=== PATIENT | male | born 1980 | race Hispanic/Latino ===

== ENCOUNTER 2016-08-17 19:02 | Observation (INO) | payer BC ==
[2016-08-17] MEDS ORDERED: BABY ASPIRIN 81 MG CHEW PO ONE (19:19)
[2016-08-17] MEDS ORDERED: Nitrostat 0.4 MG (ED) SL ONE ×2 (19:21→19:26)
[2016-08-17] MEDS ORDERED: Ativan 2 MG/1 ML VIAL SL ONE (19:21)
[2016-08-17] MEDS ORDERED: Ativan 2 MG/1 ML VIAL ONE (19:26)
[2016-08-17] MEDS ORDERED: Sodium Chloride 0.9% 1000 ML 1,000 ML ONE (19:26)
[2016-08-17] MEDS ORDERED: BABY ASPIRIN 81 MG CHEW ONE (19:26)
[2016-08-17] MEDS ORDERED: Sodium Chloride 0.9% 1000 ML 1,000 ML IV SCH (19:30)
[2016-08-17 19:40] LABS: BASOPHIL % 0.2 % (0.0-0.4); Granulocytes % 69.9 % (36.0-66.0); Lymphocytes % 20.7 % (24.0-44.0); Mean Cell Volume 84.7 fl (78-100); Mean Corpuscular Hemoglobin 28.5 pg (26-32); Mean Platelet Volume 9.8 fl (6-9.5); Monocytes % 8.2 % (0.0-12.0); Platelet Count 402 K/mm3 (150-450); Red Blood Count 5.43 M/mm3 (4.1-5.6); Red Cell Distribution Width 13.6 % (11.5-14.0); White Blood Count 12.8 K/mm3 (4.0-10.5)
[2016-08-17 20:00] LABS: ALBUMIN 3.6 g/dL (3.4-5.0); ALKALINE PHOSPHATASE 131 U/L (46-116); ANION GAP 15.9 MEQ/L (5-15); BILIRUBIN,TOTAL 0.5 mg/dL (0.2-1.0); BLOOD UREA NITROGEN 13 mg/dL (9-20); CHLORIDE 103 mEq/L (98-107); Carbon Dioxide 21.6 mEq/L (21-32); Glucose 106 MG/DL (70-110); Potassium 3.3 mEq/L (3.5-5.1); SGOT/AST 16 U/L (15-37); SGPT/ALT 27 U/L (12-78); SODIUM 137 mEq/L (136-145); Total Protein 7.9 gm/dL (6.4-8.2)
--- NOTE | 2016-08-17 20:08 | ERPHSYRPT ---
- History of Present Illness Time Seen by Provider: 08/17/16 19:19 Historian: patient Patient Subjective Stated Complaint: pt states he began having chest pain after awaking from a nap. pt states he had a similar episode last week and was seen at a [facility] and dx'd with anxiety. Triage Nursing Assessment: pt pink, warm, dry. pt ambulated into ER without difficulty. Physician History: CC: chest pain Hx: 36 y/o patient from [facility]. He is here for work. He had recent panic attacks and saw urgent care for some dyspnea and was given xanax. He misses home. Today he had some chest pain in left chest, aching, after napping for one hour this afternoon. He then felt sweaty and got diaphoretic. He felt his heart racing. The chest feels like aching and soreness. ILL: None. Panic attack. Fam: Non hx heart disease. ALL: PCN, peanuts Social: [place] Has a lot of stress and anxiety. Timing/Duration: today Aspirin Treatment Today: provided by ED Allergies/Adverse Reactions: peanut Allergy (Verified 08/17/16 19:11) Penicillins Allergy (Verified 08/17/16 19:11) Home Medications: Alprazolam 0.25 mg [xanAX 0.25 MG] 0.25 mg PO TIDPRN PRN 08/17/16 [History ] Hx Tetanus, Diphtheria Vaccination/Date Given: Yes (unknown) Hx Influenza Vaccination/Date Given: No Hx Pneumococcal Vaccination/Date Given: No Immunizations Up to Date: Yes - Review of Systems Constitutional: Malaise, No Fever, No Chills Eyes: No Symptoms Ears, Nose, & Throat: No Symptoms Respiratory: Dyspnea (a little), No Cough Cardiac: Chest Pain, Palpitations, No Edema, No Syncope Abdominal/Gastrointestinal: No Abdominal Pain, No Nausea, No Vomiting, No Diarrhea Genitourinary Symptoms: No Symptoms Musculoskeletal: No Symptoms Skin: No Symptoms Neurological: No Symptoms All Other Systems: Reviewed and Negative - Past Medical History Pertinent Past Medical History: No - Past Surgical History Past Surgical History: No - Social History Smoking Status: Never smoker Exposure to second hand smoke: No Drug Use: none Patient Lives Alone: No - Nursing Vital Signs Temperature: 98.2 F Temperature Source: Oral Pulse Rate: 92 Respiratory Rate: 16 Pain Intensity: 1 - Physical Exam General Appearance: alert, obese Eye Exam: PERRL/EOMI Ears, Nose, Throat Exam: normal ENT inspection, moist mucous membranes Neck Exam: normal inspection, non-tender, supple Respiratory Exam: normal breath sounds, lungs clear, No respiratory distress Cardiovascular Exam: regular rate/rhythm, No murmur Gastrointestinal/Abdomen Exam: soft, No tenderness, No distention Back Exam: normal inspection, normal range of motion Extremity Exam: normal inspection, normal range of motion, No calf tenderness, No pedal edema Neurologic Exam: alert, oriented x 3, cooperative Skin Exam: warm, dry, No rash SpO2 Interpretation: normal SpO2: 99 Oxygen Delivery: Room Air - Course Nursing assessment & vital signs reviewed: Yes EKG Interpreted by Me: RATE (75), Sinus Rhythm, NORMAL AXIS, 1st degree AV Block (QTc [id number]), Non-specific ST Changes - Radiology Exams cxr X-ray Interpretation: Reviewed by me (increased vascularmarkings, negative) Ordered Tests: Active Orders 24 hr Category Date Time Status Lithographed Plate Inspector STAT Care 08/17/16 19:12 Active EKG-ER Only STAT Care 08/17/16 19:12 Active IV Insertion STAT Care 08/17/16 19:12 Active Pulse Oximetry (ED) STAT Care 08/17/16 19:19 Active CHEST 1 VIEW (PORTABLE) Stat Exams 08/17/16 19:20 Taken CBC W DIFF Stat Lab 08/17/16 19:15 Completed CMP Stat Lab 08/17/16 19:15 Completed D-DIMER QUANTITATION Stat Lab 08/17/16 19:15 Completed TROPONIN Q3H Lab 08/17/16 19:15 Completed TROPONIN Q3H Lab 08/17/16 22:30 Ordered TROPONIN Q3H Lab 08/18/16 01:30 Ordered TROPONIN Q3H Lab 08/18/16 04:30 Ordered TROPONIN Q3H Lab 08/18/16 07:30 Ordered Medication Summary Generic Name Dose Route Start Last Admin Trade Name Freq PRN Reason Stop Dose Admin Sodium Chloride 1,000 mls @ 100 mls/hr 08/17/16 19:30 08/17/16 19:30 Sodium Chloride 0.9% 1000 Ml IV 09/16/16 19:29 100 mls/hr .Q10H SILVA Administration Discontinued Medications Generic Name Dose Route Start Last Admin Trade Name Freq PRN Reason Stop Dose Admin Aspirin 162 mg 08/17/16 19:19 08/17/16 19:30 Baby Aspirin 81 Mg Chew PO 08/17/16 19:20 162 mg STAT ONE Administration Aspirin Confirm 08/17/16 19:26 Baby Aspirin 81 Mg Chew Administered 08/17/16 19:27 Dose 162 mg .ROUTE .STK-MED ONE Lorazepam 1 mg 08/17/16 19:21 08/17/16 19:29 Ativan 2 Mg/1 Ml Vial SL 08/17/16 19:22 1 mg STAT ONE Administration Lorazepam Confirm 08/17/16 19:26 Ativan 2 Mg/1 Ml Vial Administered 08/17/16 19:27 Dose 2 mg .ROUTE .STK-MED ONE Nitroglycerin 0.4 mg 08/17/16 19:21 08/17/16 19:30 Nitrostat 0.4 Mg (Ed) SL 08/17/16 19:22 0.4 mg STAT ONE Administration Nitroglycerin Confirm 08/17/16 19:26 Nitrostat 0.4 Mg (Ed) Administered 08/17/16 19:27 Dose 0.4 mg SL .STK-MED ONE Lab/Rad Data: Laboratory Result Diagrams 08/17/16 19:15 08/17/16 19:15 Laboratory Results 08/17/16 08/17/16 08/17/16 Range/Units 19:15 19:15 19:15 WBC (4.0-10.5) K/mm3 RBC (4.1-5.6) M/mm3 Hgb (12.5-18.0) gm/dl Hct (42-50) % MCV (78-100) fl MCH (26-32) pg MCHC (32-36) g/dl RDW (11.5-14.0) % Plt Count (150-450) K/mm3 MPV (6-9.5) fl Gran % (36.0-66.0) % Lymphocytes % (24.0-44.0) % Monocytes % (0.0-12.0) % Eosinophils % (0.00-5.0) % Basophils % (0.0-0.4) % Basophils # (0-0.4) D-Dimer 0.293 (0.00-0.49) mg/L Sodium 137 (136-145) mEq/L Potassium 3.3 L (3.5-5.1) mEq/L Chloride 103 (98-107) mEq/L Carbon Dioxide 21.6 (21-32) mEq/L Anion Gap 15.9 H (5-15) MEQ/L BUN 13 (9-20) mg/dL Creatinine 1.00 (0.55-1.30) mg/dl Estimated GFR > 60 ML/MIN Glucose 106 (70-110) MG/DL Calcium 9.0 (8.5-10.1) mg/dL Total Bilirubin 0.5 (0.2-1.0) mg/dL AST 16 (15-37) U/L ALT 27 (12-78) U/L Alkaline Phosphatase 131 H (46-116) U/L Troponin I < 0.017 (0.000-0.056) ng/ml Serum Total Protein 7.9 (6.4-8.2) gm/dL Albumin 3.6 (3.4-5.0) g/dL / Range/Units 19:15 WBC 12.8 H (4.0-10.5) K/mm3 RBC 5.43 (4.1-5.6) M/mm3 Hgb 15.5 (12.5-18.0) gm/dl Hct 46.0 (42-50) % MCV 84.7 (78-100) fl MCH 28.5 (26-32) pg MCHC 33.7 (32-36) g/dl RDW 13.6 (11.5-14.0) % Plt Count 402 (150-450) K/mm3 MPV 9.8 H (6-9.5) fl Gran % 69.9 H (36.0-66.0) % Lymphocytes % 20.7 L (24.0-44.0) % Monocytes % 8.2 (0.0-12.0) % Eosinophils % 1.0 (0.00-5.0) % Basophils % 0.2 (0.0-0.4) % Basophils # 0.02 (0-0.4) D-Dimer (0.00-0.49) mg/L Sodium (136-145) mEq/L Potassium (3.5-5.1) mEq/L Chloride (98-107) mEq/L Carbon Dioxide (21-32) mEq/L Anion Gap (5-15) MEQ/L BUN (9-20) mg/dL Creatinine (0.55-1.30) mg/dl Estimated GFR ML/MIN Glucose (70-110) MG/DL Calcium (8.5-10.1) mg/dL Total Bilirubin (0.2-1.0) mg/dL AST (15-37) U/L ALT (12-78) U/L Alkaline Phosphatase (46-116) U/L Troponin I (0.000-0.056) ng/ml Serum Total Protein (6.4-8.2) gm/dL Albumin (3.4-5.0) g/dL - Progress Progress Note: 08/17/16 20:45 NTG made pain better. He has been seen twice for this symptoms here in [place]. He is staying in a [place] cabin. Called Dr Coelho (oc) and will place in chest pain observation. Discussed with : Meliton (oc) Will see patient in: hospital (observation) Counseled pt/family regarding: lab results, diagnosis, need for follow-up, rad results - Departure Time of Disposition: 20:47 Departure Disposition: Observation Clinical Impression: Chest pain, rule out acute myocardial infarction Condition: Stable Critical Care Time: No Referrals: DOCTOR,NO FAMILY [Primary Care Provider] -
[2016-08-17] MEDS ORDERED: NITRO-BID 2% UD PACKETS TOP ONE (20:48)
[2016-08-17] MEDS ORDERED: NITRO-BID 2% UD PACKETS ONE (20:55)
[2016-08-17] MEDS ORDERED: Zofran 4 MG/2 ML VIAL IV PRN (21:28)
[2016-08-17] MEDS ORDERED: MAALOX ES 30 ML UNIT DOSE PO PRN (21:28)
[2016-08-17] MEDS ORDERED: Senokot-S Tablet PO PRN (21:28)
[2016-08-17] MEDS ORDERED: MILK OF MAGNESIA 30 ML PO PRN (21:28)
[2016-08-17] MEDS: NITRO-BID 2% UD PACKETS TOP SCH (21:54)
[2016-08-17] MEDS: Sodium Chloride 0.9% 500 ML 500 ML IV SCH (22:03)
[2016-08-17] MEDS: Pepcid 20 MG PO SCH (22:05)
[2016-08-17] MEDS ORDERED: xanAX 0.5 MG PO PRN (23:13)
[2016-08-18] MEDS: TYLENOL 325 MG PO PRN ×2 (00:28→05:34)
[2016-08-18] MEDS ORDERED: Sodium Chloride 0.9% 1000 ML 1,000 ML ONE (05:31)
[2016-08-18] MEDS: NITRO-BID 2% UD PACKETS TOP SCH (05:33)
[2016-08-18] MEDS: Sodium Chloride 0.9% 500 ML 500 ML IV SCH (05:57)
[2016-08-18 07:10] VITALS: BP 98/58; PULSE 60; O2SAT 98
--- NOTE | 2016-08-18 08:45 | XRAY ---
Indication: Cough, chest pain, and cold sweats. Comparison: None Portable chest demonstrate normal heart, lungs, and bony thorax.
[2016-08-18] MEDS: Pepcid 20 MG PO SCH (09:30)
--- NOTE | 2016-08-18 09:32 | PCM.SSS ---
History of Present Illness - Chief Complaint Chief Complaint: CP r/o History of Present Illness: is a 36 year old male pt from [place] who is working locally for the past 1 month who came in to the ER with chest pain. He woke up with L sided inferior chest discomfort, 1-2/10, numb feeing that radiated to L shoulder and L upper back. Had some SOB, diaphoresis, and palpitations. no nausea. He did start feeling better after admission and now has no chest pain. He notes he has been under a lot of stress recently. He had a similar episode about 10 years ago and had an outpatient stress test and a heart catheterization and the diagnosis was stress-related chest pain. Overnight RN reported HR in upper 30s- he was asymptomatic. - Review of Systems Constitutional: Fever (subj at times) Respiratory: Short Of Breath Cardiac: Chest Pain, Palpitations Psychological: Anxiety All Other Systems: Reviewed and Negative Medications & Allergies Home Medications: Home Medication List Alprazolam 0.25 mg [xanAX 0.25 MG] 0.25 mg PO TIDPRN PRN 08/17/16 [ History Confirmed 08/17/16] Allergies/Adverse Reactions: Allergies Allergy/AdvReac Type Severity Reaction Status Date / Time peanut Allergy Verified 08/17/16 19:11 Penicillins Allergy Verified 08/17/16 19:11 - Past Medical History Past Medical History: Yes Neurological History: No Pertinent History ENT History: No Pertinent History Cardiac History: Angina Respiratory History: No Pertinent History Endocrine Medical History: No Pertinent History Musculoskelatal History: No Pertinent History GI Medical History: GERD History: No Pertinent History Pyscho-Social History: Anxiety Male Reproductive Disorders: No Pertinent History - Past Surgical History Past Surgical History: No Other Surgical History: Pt denies - Social History Smoking Status: Never smoker Exposure to second hand smoke: Yes Alcohol: None Drug Use: none - Physical Exam Vital Signs: Vital Signs - 24 hr Temp Pulse Pulse Resp BP Pulse Ox 08/18/16 08:31 98 08/18/16 07:09 98 F 60 20 98/58 98 08/18/16 05:00 95 08/18/16 04:05 98.5 F 52 L 18 91/55 96 08/18/16 01:24 95 08/17/16 22:32 98.4 F 79 20 119/66 98 08/17/16 21:28 98 08/17/16 20:58 80 16 123/58 96 08/17/16 20:48 98.2 F 92 H 16 99 08/17/16 20:44 76 16 116/61 97 08/17/16 20:24 76 16 115/67 97 08/17/16 19:35 92 H 16 122/57 99 08/17/16 19:33 99 08/17/16 19:03 80 08/17/16 19:02 98.2 F 87 18 130/67 99 General Appearance: no apparent distress, obese Neurologic Exam: alert, oriented x 3, cooperative Eye Exam: eyes nml inspection Neck Exam: normal inspection, non-tender, No lymphadenopathy Respiratory Exam: normal breath sounds, lungs clear, No crackles/rales, No rhonchi, No wheezing Cardiovascular Exam: regular rate/rhythm, normal heart sounds, No murmur Gastrointestinal/Abdomen Exam: soft, normal bowel sounds, No tenderness, No distention, No mass Back Exam: other (L upper back with approx 12x14 cm soft mobile mass) Skin Exam: normal color, warm, dry Results - Labs Lab/Micro Results: Lab Results-Last 24 Hours 08/17/16 08/18/16 08/18/16 Range/Units 23:00 01:30 04:35 Troponin I < 0.017 < 0.017 < 0.017 (0.000-0.056) ng/ml Triglycerides (30-200) mg/dL Cholesterol (100-200) mg/dL LDL Cholesterol (5-99) mg/dL HDL Cholesterol (35-60) mg/dL Heart Disease Risk Ratio 08/18/16 08/18/16 Range/Units 04:35 07:35 Troponin I < 0.017 (0.000-0.056) ng/ml Triglycerides 117 (30-200) mg/dL Cholesterol 153 (100-200) mg/dL LDL Cholesterol 111 H (5-99) mg/dL HDL Cholesterol 27 L (35-60) mg/dL Heart Disease Risk Ratio 5.7 - Other Procedures and Tests Respiratory Therapy 08/19/16 05:00 EKG DAILY 08/20/16 05:00 EKG DAILY EKG DAILY 08/21/16 05:00 EKG DAILY Assessment/Plan (1) Chest pain, rule out acute myocardial infarction Current Visit: Yes Status: Acute Assessment & Plan: Negative troponins x 3. Would like him to have the full course of 5 negative troponins before discharge. He needs an outpatient cartiolyte treadmill test - probably best done by his PCP in [place]. Would like him to go back to [place] next week. Code(s): R07.9 - CHEST PAIN, UNSPECIFIED (2) Bradycardia Current Visit: Yes Status: Acute Assessment & Plan: I spoke with DR. Gallardo, he agreed with stress test and holter monitor. OK to d /c pateint when he rules out. Code(s): R00.1 - BRADYCARDIA, UNSPECIFIED Hospital Summary - Hospital Course Hospital Course: Pt admitted with chest pain, with 2 more neg troponins will rule out for [facility]. He has been under a lot of stress and had a similar type episode 10 years ago that was related to stress. First three troponins are neg; with final 2 negative will d/c home. He is working this weekend but will go home to [place] next week and f/u with PCP. He will need treadmill cardiolyte stress test. We are placing a Holter monitor this weekend. - Vitals & Intake/Output Vital Signs: Vital Signs Temperature 98 F 08/18/16 07:09 Pulse Rate 60 08/18/16 07:09 Respiratory Rate 20 08/18/16 07:09 Blood Pressure 98/58 08/18/16 07:09 O2 Sat by Pulse Oximetry 98 08/18/16 08:31 Intake & Output: Intake & Output 08/15/16 08/16/16 08/17/16 08/18/16 11:59 11:59 11:59 11:59 Intake Total 1186 Balance 1186 Weight 146.964 kg - Lab Result Diagrams: 08/17/16 19:15 08/17/16 19:15 Lab Results-Last 24 Hrs: Lab Results-Last 24 Hours 08/17/16 08/18/16 08/18/16 Range/Units 23:00 01:30 04:35 Troponin I < 0.017 < 0.017 < 0.017 (0.000-0.056) ng/ml Triglycerides (30-200) mg/dL Cholesterol (100-200) mg/dL LDL Cholesterol (5-99) mg/dL HDL Cholesterol (35-60) mg/dL Heart Disease Risk Ratio 08/18/16 08/18/16 Range/Units 04:35 07:35 Troponin I < 0.017 (0.000-0.056) ng/ml Triglycerides 117 (30-200) mg/dL Cholesterol 153 (100-200) mg/dL LDL Cholesterol 111 H (5-99) mg/dL HDL Cholesterol 27 L (35-60) mg/dL Heart Disease Risk Ratio 5.7 - Procedures and Test Procedures and Tests throughout Hospitalization: Therapy Orders & Screens 08/18/16 05:30 EKG ROUTINE Comment: Diagnosis: CP r/o 08/19/16 05:00 EKG DAILY Comment: Diagnosis: CP r/o 08/20/16 05:00 EKG DAILY Comment: Diagnosis: CP r/o EKG DAILY Comment: Diagnosis: CP r/o 08/21/16 05:00 EKG DAILY Comment: Diagnosis: CP r/o - Discharge Disposition: Home, Self-Care Condition: Stable Prescriptions: No Action Alprazolam 0.25 mg [xanAX 0.25 MG] 0.25 mg PO TIDPRN PRN PRN Reason: Anxiety Follow up with: DOCTOR,NO FAMILY [Primary Care Provider] -
[2016-08-18] MEDS ORDERED: Ecotrin 325 MG PO SCH (10:00)
--- NOTE | 2016-08-18 10:04 | PCM.DCORD ---
- Discharge Disposition: Home, Self-Care Condition: Stable Prescriptions: No Action Alprazolam 0.25 mg [xanAX 0.25 MG] 0.25 mg PO TIDPRN PRN PRN Reason: Anxiety Follow up with: DOCTOR,NO FAMILY [Primary Care Provider] -
== END 2016-08-18 10:35 | disposition home or self-care (01) ==
LOC: ED 19:02 → MED SURG 21:21
PROVIDERS: ADMIT Family Medicine; ATTEND Family Medicine
DX: R07.9 Chest pain, unspecified (principal); R00.1 Bradycardia, unspecified; Z79.899 Other long term (current) drug therapy
CPT/HCPCS: 36000; 36415; 71010; 80053; 80061; 80307; 83721; 84484; 85025; 85379; 93005; 93041; 96360; 96361; 99285; G0378; J2060; A9270-GY